=== PATIENT | female | born 1970 | race Caucasian/White ===

== ENCOUNTER → 2018-09-08 | Outpatient (REF) | payer OTHER | LOC: M SFHCLERA 15:17 | PROVIDERS: ATTEND Physician Assistant | DX: J02.9 Acute pharyngitis, unspecified (principal) ==

== ENCOUNTER → 2019-01-13 | Outpatient (CLI) | payer OTHER ==
--- NOTE | 2019-01-16 14:36 | REP ---
MRI RIGHT ANKLE WITHOUT CONTRAST: HISTORY: Primary osteoarthritis of the right ankle and foot. Diffuse pain throughout the mid foot. Flat foot deformity and degenerative changes on plain x-ray. No history of recent trauma. Comparison radiographs are retrieved dated October 20, 2018. MRI TECHNIQUE: Axial, coronal and sagittal imaging planes utilized. T1- and T2-weighted scans were included with and without fat saturation. MRI FINDINGS: There are several small subcortical cysts in the talus and in the calcaneus on either side of the subtalar articulation medially. There is osteoarthritic spurring mild in degree associated with this portion of the subtalar joint. The sinus tarsi appears to be a fluid-filled or infiltrated with edema. There is osteoarthritic spurring at the talonavicular articulation and at the navicular cuneiform articulations. Minimal spurring is seen at the calcaneal cuboid articulation. There is Achilles and plantar calcaneal spurring. There is plantar fascia thickening posteriorly. The plantar arch is somewhat flattened. There is no osteochondral defect lesion in the talar dome or tibial plafond. There is a tiny zone of marrow edema in the medial malleolar tip. Deltoid ligamentous complex appears intact. There is spurring and a tiny area of subcortical cyst formation in the distal fibular tip. The calcaneofibular ligament is somewhat horizontally oriented but appears intact. The anterior talofibular and anterior inferior tibiofibular ligaments appear intact. Posterior tibiofibular ligament has an intact appearance. Posterior talofibular ligament is unremarkable. The peroneus longus and brevis tendons shows slight increased signal intensity. There is some fluid surrounding the peroneus tendons just below the lateral malleolar tip. The tibialis posterior tendon appears intact. Flexor digitorum and flexor analysis longus tendons appear intact. A small quantity of fluid is seen posterior to the ankle and adjacent to the flexor hallicis longus tendon. This tendon sheath fluid is a normal finding. The linear structure with edematous fluid surrounding it in the medial subcutaneous soft tissues above the ankle. This may be a vein surrounded by fluid. There is more diffuse subcutaneous edema about the ankle anterolaterally as well as medially on T2-weighted scans. IMPRESSION: There are osteoarthritic changes in the midfoot and hindfoot and ankle. There are subcortical cysts associated with this and areas of spurring. Somewhat decreased plantar arch. Heel spurring with chronic appearing thickening of the proximal plantar fascia. Electronically Signed by Romulo Lovelace MD 01/16/2019 04:00 P
--- NOTE | 2019-01-16 14:56 | REP ---
MRI right foot without contrast: History: Primary osteoarthritis of the right foot. Diffuse pain throughout the mid foot. Flat foot with degenerative changes on plain film. No history of recent trauma. Comparison radiographs are from October 17, 2018. Technique: Axial, coronal and sagittal imaging planes are utilized. T1 and T2-weighted scans are obtained with and without fat saturation. MRI findings: There is mild to moderate midfoot osteoarthritis with the most prominent spurring between the distal talus and the navicular bone. There is milder spurring in the naviculocuneiform and calcaneal cuboid articulations. Plantar heel spurring is noted. There is subcortical cyst formation on either side of the medial portion of the subtalar joint with some spurring. The area of the sinus tarsi is edematous or infiltrated. There is fluid and edema adjacent to the anterior talofibular. This ligament appears intact. Extra-articular subcutaneous edema is seen adjacent to the ankle. Cortical and medullary bone signal intensity are otherwise normal. Plantar arch is somewhat decreased. Plantar fascia is thickened in its proximal 1-1/2 cm. Impression: Mild to moderate midfoot osteoarthritic changes. Electronically Signed by Romulo Lovelace MD 01/16/2019 04:11 P
== END ==
LOC: M RAD 14:15
PROVIDERS: ATTEND Podiatrist
DX: M79.671 Pain in right foot (principal)

== ENCOUNTER → 2023-01-20 | Outpatient (CLI) | payer OTHER | LOC: M SLEEP 18:26 | PROVIDERS: ATTEND Nurse Practitioner Adult Health | DX: G47.33 Obstructive sleep apnea (adult) (pediatric) (principal) ==